=== PATIENT | male | born 1965 | race Caucasian/White ===

== ENCOUNTER 2024-03-27 10:24 | Outpatient (OUT) | payer OTHER, SELFPAY ==
--- NOTE | 2024-03-27 10:35 | XR_ITS ---
The [address] [address] Patient Name: CARLOTTA ROBERTSON MRN: [id number] date: 1965 Sex: M Assigned Patient Location: CARD Current Patient Location: Accession/Order Number: [id number] Exam Date: 03/27/2024 10:40 Report Date: 03/30/2024 11:07 At the request of: NON-STAFF PHYSICIAN Procedure: XR knee LT 3V PROCEDURE: XR knee LT 3V HISTORY: Left Knee Arthritis [; chronic left knee pain COMPARISON: None. FINDINGS: BONES:Small degenerative ossified along the articular margins of all 3 compartments. No fracture, dislocation, bone lesion. SOFT TISSUES:No visible soft tissue swelling. EFFUSION:Moderate size joint effusion. OTHER: Negative. XR/XR knee LT 3V IMPRESSION: 1. Joint effusion and mild degenerative joint disease. Electronically authenticated by: RAVI THOMSON Date: 03/30/2024 11:07
== END 2024-03-27 10:25 | disposition home or self-care (01) ==
PROVIDERS: PCP Family Medicine
DX: R06.02 Shortness of breath (principal); M13.862 Other specified arthritis, left knee; M25.462 Effusion, left knee
CPT/HCPCS: 73562